=== PATIENT | male | born 1930 | race Caucasian/White ===

== ENCOUNTER 2019-10-21 14:56 | Emergency (ER) | payer MEDICARE ==
[~2019-10-21] VITALS: Ht 188 cm; Wt 108.9 kg
[2019-10-21 14:58] VITALS: BP_SYST 137
--- NOTE | 2019-10-21 14:58 | NUR ---
Placed in room 2 . Placed on telemetry monitor, blood pressure machine and pulse oximeter. To gown for exam. Side rails up. Assumed care.
--- NOTE | 2019-10-21 15:00 | NUR ---
ER at bedside examining patient.
--- NOTE | 2019-10-21 15:00 | NUR ---
Patient was brought in by [facility] ambulance. Patient was found down by family. Patient was found in restroom sitting on toilet. Patient was slumped and leaning on sink. No evidence of trauma. No active bleeding or bruising noted. Per EMS they spoke with daughter. She stated she was talking to him around 0300, LKWT. He went back to bed, then she went to check on him in bed, found him the restroom. She asked if he needed help, patient stated "No." She went to recheck on him 1 hour later and found him slumped next to sink. She is who called EMS. Per EMS GCS was 11, with low blood pressure of 70's/30's. Patient was found to be soiled with stool. Will continue to follow up and monitor.
[2019-10-21] MEDS ORDERED: NACL 0.9% 3,000 ML IV ONE (15:10)
[2019-10-21] MEDS ORDERED: cefTRIAXone 1 GM IVPB PREMIX 50 ML IV ONE (15:15)
[2019-10-21 16:27] LABS: BASOPHILS # (AUTO) 0.1 K/uL (0.0-0.2); BASOPHILS % (AUTO) 0.9 % (0.0-2.0); EOSINOPHILS # (AUTO) 1.1 K/uL (0.0-0.4); EOSINOPHILS % (AUTO) 7.5 % (0.0-4.0); HEMATOCRIT 46.4 % (36-54); LYMPHOCYTES # (AUTO) 1.3 K/uL (1.0-5.5); MEAN CORPUSCULAR HEMOGLOBIN 31 pg (27-31); MEAN CORPUSCULAR HGB CONC 32 % (32-36); MEAN CORPUSCULAR VOLUME 95 fL (79.0-98.0); MONOCYTES # (AUTO) 2.1 K/uL (0.0-1.0); MONOCYTES % (AUTO) 14.7 % (1.7-9.3); NEUTROPHILS # (AUTO) 9.5 K/uL (1.8-7.7); NEUTROPHILS % (AUTO) 67.9 % (40.0-70.0); PLATELET COUNT (AUTO) 219 K/uL (130-430); RED BLOOD CELL COUNT(AUTO) 4.88 MIL/uL (4.2-6.2); RED CELL DISTRIBUTION WIDTH 15.4 % (9.0-15.0); WHITE BLOOD COUNT (AUTO) 14.1 K/uL (4.8-10.8)
[2019-10-21 16:32] LABS: ANION GAP 11 (5-15); CALCIUM 10.4 mg/dL (8.4-11.0); CHLORIDE 96 mmol/L (98-107); CREATININE 1.85 mg/dL (0.55-1.30); GLUCOSE 112 mg/dL (70-99); POTASSIUM 3.9 mmol/L (3.5-5.1); SODIUM SERUM 129 mmol/L (136-145); UREA NITROGEN, BLOOD 33 mg/dL (8-21)
--- NOTE | 2019-10-21 16:35 | NUR ---
# 16 FR [place] catheter with use of sterile technique. Immediate return of 50 cc yellow urine noted. Bedside drainage bag placed below level of bladder. Urine sample collected and sent to lab. Pt tolerated procedure well. Patient unable to toilet self, monitoring of strict I&O.
[2019-10-21 16:37] LABS: ALANINE AMINOTRANSFERASE 29 U/L (12-78); ALBUMIN 3.6 g/dL (3.4-4.8); ASPARTATE AMINOTRANSFERASE 23 U/L (10-37); TOTAL BILIRUBIN 0.6 mg/dL (0.0-1.0)
[2019-10-21 16:39] LABS: BILIRUBIN,URINE NEGATIVE (NEGATIVE); BLOOD, URINE NEGATIVE (NEGATIVE); CLARITY/URINE CLEAR (CLEAR); COLOR,URINE YELLOW (YELLOW); GLUCOSE,URINE NEGATIVE (NEGATIVE); KETONES,URINE NEGATIVE (NEGATIVE); LEUKOCYTE ESTERASE ,URINE NEGATIVE (NEGATIVE); NITRITE, URINE NEGATIVE (NEGATIVE); PROTEIN URINE TRACE (NEGATIVE)
--- NOTE | 2019-10-21 16:45 | NUR ---
Patients daughter Shaunna at bedside. Spoke with her regarding [employer] insurance and possible transfer. Patients daughter provided phone number for updates. Phone number of [phone].
[2019-10-21 16:51] LABS: BACTERIA,URINE FEW /HPF (None Seen); MUCUS,URINE None Seen /LPF (None Seen); RBC,URINE NONE SEEN /HPF (0-3); WBC,URINE 0-3 /HPF (0-3)
--- NOTE | 2019-10-21 16:55 | NUR ---
LATE ENTRY Patient IV ABX and IVF were started at 1650. Daughter at bedside. Forgot to save scan.
--- NOTE | 2019-10-21 17:00 | NUR ---
Patient taken to CT scan via [facility], escorted by LUZ Perez tech.
--- NOTE | 2019-10-21 17:15 | NUR ---
Patient returned from CT scan via [facility].
[2019-10-21] MEDS ORDERED: ACETAMINOPHEN 325 MG TABLET PO ONE (17:45)
--- NOTE | 2019-10-21 17:46 | NUR ---
Patient given Tylenol 650mg for pain of 5/10, patient requested this medication states this is what he takes and home and works well for him. Pain is in the back, soreness.
[2019-10-21] MEDS ORDERED: ACETAMINOPHEN 325 MG TABLET ONE (17:51)
--- NOTE | 2019-10-21 17:55 | NUR ---
to with Dr. Muñoz and Dr. Rascon with [facility]. Will follow up regarding possible transfer.
--- NOTE | 2019-10-21 18:27 | NUR ---
Patients IV ABX all completed. Flushed IV line with NS. Patients pain reassessed. Patient states 2/10 pain discomfort. Patient given warm blanket as requested.
--- NOTE | 2019-10-21 18:44 | NUR ---
Patient brought to radiology department for CT scan via gurney.
--- NOTE | 2019-10-21 19:21 | NUR ---
Received report from KELBY King to endorse all care.
--- NOTE | 2019-10-21 20:06 | NUR ---
Patient to be transferred to [facility]. Is being transferred due to insurance. Receiving facility has accepting physician and available space. ER physician has signed transfer form. Patient or responsible libertarian has agreed to transfer and signed form. Patient belongings inventoried and will be sent with patient. Copy of nursing notes, lab reports, EKG, Physicians Orders and X-rays to be sent with patient. Report called to Amp, hygiene teacher at receiving facility. Receiving physician is Brenda. [facility] has been called for transfer. ETA is 2030.
--- NOTE | 2019-10-21 20:11 | NUR ---
Spoke with Pt daughter, Shaunna and let her know pt was to be transferred to [facility] and they will be arriving at approximately 2030 to pick him up and they will endorse care.
--- NOTE | 2019-10-21 20:19 | NUR ---
[facility] ambulance here to picker tender helper pt. Report given, IV flushed and vital signs taken.
[2019-10-21 20:20] VITALS: BP_SYST 143
== END 2019-10-21 20:20 | disposition short-term general hospital (02) ==
LOC: SED 14:56
DX: A41.9 Sepsis, unspecified organism (principal); J18.9 Pneumonia, unspecified organism; E87.1 Hypo-osmolality and hyponatremia
CPT/HCPCS: 36415; 70450; 71045; 71250; 80053; 81000; 83605; 85025; 85379; 87040; 93005; 96365; 96368; 99291; J0696; J1956; J7030